=== PATIENT | female | born 1930 | race African-American/Black ===

== ENCOUNTER 2017-05-04 16:10 | Emergency (ER) | payer MEDICARE, BC ==
[~2017-05-04] VITALS: Ht 170.2 cm; Wt 93.0 kg
[2017-05-04] MEDS ORDERED: TETANUS, DIPHTHERIA, PERTUSSIS VAC/PF 0.5ML (>7YR OLD) IM ONE (17:00)
[2017-05-04] MEDS ORDERED: LIDOCAINE HCL 1%/EPI 1:200,000 30 ML VIAL MC ONE (17:00)
[2017-05-04 19:20] VITALS: BP 148/85
== END 2017-05-04 20:12 | disposition home or self-care (01) ==
LOC: ER 17:05
PROC: 0HQ0XZZ Repair Scalp Skin, External Approach (ICD-10-PCS; principal; 2017-05-04)
DX: S09.90XA Unspecified injury of head, initial encounter (principal); S01.01XA Laceration without foreign body of scalp, initial encounter; W18.39XA Other fall on same level, initial encounter; Y93.89 Activity, other specified; E78.00 Pure hypercholesterolemia, unspecified; I10 Essential (primary) hypertension; Y92.89 Other specified places as the place of occurrence of the external cause; E11.9 Type 2 diabetes mellitus without complications; Z86.718 Personal history of other venous thrombosis and embolism
CPT/HCPCS: 12001; 70450; 90471; 90715; 99284